=== PATIENT | male | born 1940 | race Two or more races ===

== ENCOUNTER 2018-12-08 19:08 | Emergency (ER) | payer MEDICARE, MEDICAID ==
[~2018-12-08] VITALS: Ht 170.2 cm; Wt 65.8 kg
--- NOTE | 2018-12-08 19:25 | NUR ---
DR STEELE SPEAKING WITH FAMILY MEMBER OF PATIENT
--- NOTE | 2018-12-08 19:25 | NUR ---
DR STEELE INTO EVAL PATIENT
--- NOTE | 2018-12-08 19:28 | NUR ---
CALLED [facility] AND SPOKE TO CHIQUITA LIMON. PATIENT WITH NO COMPLAINT UPON ARRIVAL. NO DISTRESS NOTED. PER CHIQUITA LIMON, PATIENT WAS ON HIS WHEELCHAIR TRANSFERING HIMSELF BACK TO HIS BED AND SLID ON THE FLOOR. NO TRAUMA NOTED.INCIDENT OCURRED AT 1400 TODAY.
[2018-12-08] MEDS ORDERED: AMLO10TA4 PO (19:45)
[2018-12-08] MEDS ORDERED: FAMO-132 PO (19:45)
[2018-12-08] MEDS ORDERED: INSU100V7 SQ (19:45)
[2018-12-08] MEDS ORDERED: MAGN400O6 PO (19:45)
[2018-12-08] MEDS ORDERED: ATOR80TA PO (19:45)
[2018-12-08] MEDS ORDERED: INSU100I14 SQ (19:45)
[2018-12-08] MEDS ORDERED: ASPI81TA31 PO (19:45)
[2018-12-08] MEDS ORDERED: CLOP75TA15 PO (19:45)
[2018-12-08] MEDS ORDERED: NYST15OI TP (19:45)
[2018-12-08] MEDS ORDERED: LISI40TA4 PO (19:45)
[2018-12-08] MEDS ORDERED: TRAM50TA PO (19:46)
[2018-12-08] MEDS ORDERED: METF-440 PO (19:47)
[2018-12-08] MEDS ORDERED: SPIR25TA PO (19:47)
--- NOTE | 2018-12-08 19:49 | NUR ---
CALLED [facility] TO TAKE PATIENT BACK TO [facility]. ETA IS 1HR WITH TRIP # [id number]
--- NOTE | 2018-12-08 20:48 | NUR ---
Gave SBAR report to [id number]
[2018-12-08 20:56] VITALS: BP 140/77
== END 2018-12-08 20:57 | disposition home or self-care (01) ==
LOC: ER 19:11
DX: Z04.3 Encounter for examination and observation following other accident (principal); K21.9 Gastro-esophageal reflux disease without esophagitis; E78.5 Hyperlipidemia, unspecified; Z79.4 Long term (current) use of insulin; Z79.82 Long term (current) use of aspirin; Z79.899 Other long term (current) drug therapy; W06.XXXA Fall from bed, initial encounter; Y93.89 Activity, other specified; Y92.89 Other specified places as the place of occurrence of the external cause; Y99.8 Other external cause status
CPT/HCPCS: A4663